=== PATIENT | male | born 1980 | race Asian ===

== ENCOUNTER 2023-02-20 10:35 | Emergency (ER) | payer SELFPAY ==
[~2023-02-20] VITALS: Ht 167.6 cm; Wt 70.3 kg
[2023-02-20 10:54] VITALS: BP 140/99
--- NOTE | 2023-02-20 11:01 | NUR ---
PT C/O OF LT ANKLE PAIN AND SWELLING SINCE YESTERDAY AFTER PLAYING BASKETBAL. DR ARGUELLO AT BEDSIDE, MSE COMPLETED. NAD.
[2023-02-20] MEDS ORDERED: KETOROLAC 30 MG/ML VIAL IM ONE (11:05)
[2023-02-20] MEDS ORDERED: IBUP-2213 PO (11:44)
[2023-02-20 11:58] VITALS: BP 106/62
--- NOTE | 2023-02-20 11:58 | NUR ---
The patient's care was reviewed and supervised by ED Agency Nurse 8, RN, RN.
--- NOTE | 2023-02-20 12:37 | NUR ---
Patient discharged with v/s stable. Written and verbal after care instructions given and explained. Patient verbalized understanding. Ambulatory with to car. All questions addressed prior to discharge. Advised to follow up with PMD.
== END 2023-02-20 11:58 | disposition home or self-care (01) ==
LOC: MED 10:35
DX: S93.492A Sprain of other ligament of left ankle, initial encounter (principal); Z79.899 Other long term (current) drug therapy; W18.30XA Fall on same level, unspecified, initial encounter; Y93.67 Activity, basketball; Y92.89 Other specified places as the place of occurrence of the external cause; Y99.8 Other external cause status
CPT/HCPCS: 73610; 96372; 99283; J1885; Q0092